=== PATIENT | female | born 1995 ===

== ENCOUNTER 2021-03-10 17:13 | Inpatient (IN) | payer OTHER ==
[2021-03-10] MEDS: DEXTROSE 5%-LACTATED RINGERS 1,000 ML IV SCH (20:30)
[2021-03-10 21:06] VITALS: BMI 22.1
[2021-03-10] MEDS ORDERED: OXYTOCIN 30 UNITS in 0.9% NS 30 UNIT/500 ML INFUS.BAG IVPB SCH (21:15)
[2021-03-10] MEDS ORDERED: BUTORPHANOL TARTRATE 2 MG/ML VIAL IVPB ONE (21:18)
[2021-03-10] MEDS ORDERED: PROMETHAZINE HCL 25 MG/1 ML VIAL IVPUSH ONE (21:18)
[2021-03-10 21:43] LABS: BASO % 0.3 % (0-2.0); EOS % 0.5 % (0-4.5); HEMATOCRIT 35.8 % (32.4-45.2); HEMOGLOBIN 11.8 GM/dL (10.7-15.3); LYMPH % 14.7 % (8-40); MCH 29.8 pg (25.7-33.7); MCHC 32.8 g/dl (32.0-36.0); MEAN CELL VOLUME 90.9 fl (80-96); MEAN PLT VOLUME 8.1 fl (7.5-11.1); MONO % 9.9 % (3.8-10.2); NEUT % 74.6 % (42.8-82.8); PLATELET COUNT 223 10^3/uL (134-434); RBC 3.94 M/mm3 (3.60-5.2); RDW 14.5 % (11.6-15.6); WHITE BLOOD COUNT 10.7 K/mm3 (4.0-10.0)
[2021-03-10 21:51] LABS: INR 0.89 (0.83-1.09); PROTHROMBIN TIME (PATIENT) 10.8 SEC (9.7-13.0)
[2021-03-10 21:54] LABS: ACTIVATED PTT 23.6 SECONDS (25.2-36.5)
[2021-03-10 22:10] LABS: BLOOD UREA NITROGEN 6.2 mg/dL (7-18)
[2021-03-10 22:16] LABS: CALCIUM 8.7 mg/dL (8.5-10.1); CREATININE 0.4 mg/dL (0.55-1.3)
[2021-03-10] MEDS ORDERED: OXYTOCIN 30 UNITS in 0.9% NS 30 UNIT/500 ML INFUS.BAG IVPB ONE (22:31)
[2021-03-10 23:04] LABS: HIV INTERPRETATION NEGATIVE (NEGATIVE)
[2021-03-10] MEDS ORDERED: AMPICILLIN - 2 GM in SODIUM CHLORIDE 100 ML IVPB ONE (23:55)
[2021-03-10] MEDS ORDERED: AMPICILLIN SODIUM 2 GM VIAL ONE (23:57)
[2021-03-11] MEDS ORDERED: AMPICILLIN SODIUM 1 GM VIAL ONE ×3 (03:57→12:30)
[2021-03-11] MEDS: AMPICILLIN - 1 GM in SODIUM CHLORIDE 100 ML IVPB SCH ×4 (04:00→17:30)
[2021-03-11] MEDS: DEXTROSE 5%-LACTATED RINGERS 1,000 ML IV SCH (04:45)
[2021-03-11] MEDS ORDERED: PROMETHAZINE HCL 25 MG/1 ML VIAL ONE (14:40)
[2021-03-11] MEDS ORDERED: BUTORPHANOL TARTRATE 2 MG/ML VIAL ONE (14:40)
[2021-03-11] MEDS ORDERED: ONDANSETRON 4 MG/2 ML VIAL IVPUSH PRN (16:13)
[2021-03-11] MEDS ORDERED: morphine SULFATE/PF 0.5 MG/ML (2cc Syringe - QUVA) EP ONE (16:13)
[2021-03-11] MEDS ORDERED: ELECTROLYTE-148 SOLN 500 ML IV ONE (16:18)
[2021-03-11] MEDS ORDERED: CITRIC ACID/SODIUM CITRATE 30 ML UNIT-DOSE CUP PO ONE (16:18)
[2021-03-11] MEDS ORDERED: ELECTROLYTE-148 SOLN 1,000 ML IV SCH (16:30)
[2021-03-11] MEDS ORDERED: morphine SULFATE/PF 0.5 MG/ML (2cc Syringe - QUVA) ONE (16:35)
[2021-03-11] MEDS ORDERED: ceFAZolin SODIUM 1 GM VIAL ONE (16:36)
[2021-03-11] MEDS ORDERED: OXYTOCIN 10 UNITS/ML VIAL ONE (17:07)
[2021-03-11] MEDS ORDERED: ONDANSETRON 4 MG/2 ML VIAL ONE (17:12)
[2021-03-11] MEDS ORDERED: SENNOSIDES/DOCUSATE COMBO (SENNA PLUS) TABLET (UD) PO PRN (18:37)
[2021-03-11] MEDS ORDERED: IBUPROFEN 800 MG/8 ML IJ IVPB PRN (18:37)
[2021-03-11] MEDS ORDERED: oxyCODONE HCL 5 MG TABLET PO PRN ×2 (18:37)
[2021-03-11] MEDS ORDERED: METHYLERGONOVINE MALEATE 0.2 MG/1 ML AMP IM PRN (18:37)
[2021-03-11] MEDS ORDERED: OXYTOCIN 20 UNITS in 0.9% NS 20 UNIT/1,000 ML INFUS.BAG IV SCH (18:45)
[2021-03-11] MEDS ORDERED: OXYTOCIN 20 UNITS in 0.9% NS 20 UNIT/1,000 ML INFUS.BAG IV ONE (18:49)
[2021-03-12 09:40] LABS: BASO % 0.3 % (0-2.0); HEMATOCRIT 30.7 % (32.4-45.2); HEMOGLOBIN 10.2 GM/dL (10.7-15.3); LYMPH % 5.2 % (8-40); MCH 30.2 pg (25.7-33.7); MCHC 33.1 g/dl (32.0-36.0); MEAN CELL VOLUME 91.3 fl (80-96); MEAN PLT VOLUME 7.9 fl (7.5-11.1); MONO % 7.7 % (3.8-10.2); NEUT % 86.8 % (42.8-82.8); PLATELET COUNT 200 10^3/uL (134-434); RBC 3.36 M/mm3 (3.60-5.2); RDW 14.4 % (11.6-15.6); WHITE BLOOD COUNT 15.6 K/mm3 (4.0-10.0)
[2021-03-12] MEDS: PRENATAL VITAMINS W/ FOLIC ACID TABLET (FP) PO SCH (11:17)
[2021-03-12] MEDS: SIMETHICONE 80 MG TAB.CHEW (FP) PO PRN (11:35)
[2021-03-12] MEDS: ACETAMINOPHEN 325 MG TABLET (FP) PO PRN ×2 (11:35→22:48)
[2021-03-12] MEDS: IBUPROFEN 600 MG TABLET (FP) PO PRN ×2 (11:38→22:49)
[2021-03-12] MEDS ORDERED: BISACODYL 10 MG SUPP.RECT RC PRN (18:37)
[2021-03-13] MEDS: PRENATAL VITAMINS W/ FOLIC ACID TABLET (FP) PO SCH (09:59)
[2021-03-13] MEDS: SIMETHICONE 80 MG TAB.CHEW (FP) PO PRN (15:40)
[2021-03-13] MEDS: ACETAMINOPHEN 325 MG TABLET (FP) PO PRN (15:40)
[2021-03-13] MEDS: IBUPROFEN 600 MG TABLET (FP) PO PRN (15:41)
[2021-03-14] MEDS: ACETAMINOPHEN 325 MG TABLET (FP) PO PRN (09:02)
[2021-03-14] MEDS: SIMETHICONE 80 MG TAB.CHEW (FP) PO PRN (09:02)
[2021-03-14] MEDS: IBUPROFEN 600 MG TABLET (FP) PO PRN (09:02)
[2021-03-14] MEDS: PRENATAL VITAMINS W/ FOLIC ACID TABLET (FP) PO SCH (09:02)
[2021-03-14 10:19] VITALS: BP 107/63; PULSE 93; TEMP 98.5
== END 2021-03-14 12:40 | disposition home or self-care (01) | DRG 540 ==
LOC: EDBD 17:13 → JDEL 17:13 → JLDR 20:15 → J3W 03-11 20:40
PROVIDERS: ADMIT Obstetrics & Gynecology; ATTEND Obstetrics & Gynecology
PROC: 10D00Z1 Extraction of Products of Conception, Low, Open Approach (ICD-10-PCS; principal; 2021-03-11)
DX: O76 Abnormality in fetal heart rate and rhythm complicating labor and delivery (principal); O48.0 Post-term pregnancy; O32.4XX0 Maternal care for high head at term, not applicable or unspecified; O77.0 Labor and delivery complicated by meconium in amniotic fluid; O69.1XX0 Labor and delivery complicated by cord around neck, with compression, not applicable or unspecified; Z3A.40 40 weeks gestation of pregnancy; Z37.0 Single live birth
CPT/HCPCS: 36415; 80048; 85025; 85610; 85730; 86780; 86850; 86900; 86901; 87389; 88307-TC; C9803; U0003; U0005